=== PATIENT | female | born 1985 | race American Indian/Alaskan Native ===

== ENCOUNTER 2020-01-14 11:20 | Outpatient (CLI) | payer OTHER ==
[2020-01-14 12:03] VITALS: BP 103/66
--- NOTE | 2020-01-14 15:10 | Ultrasound Report ---
ULTRASOUND BIOPHYSICAL PROFILE INDICATION: Arrhythmia. COMPARISON: None available. FINDINGS: heart rate is 134 beats per minute. breathing movement = 2 Gross body movement = 2 tone = 2 Qualitative amniotic fluid volume = 2 IMPRESSION: biophysical profile = 02/12 Signer Name: Torrey Dunn Jr, MD Signed: 01/14/2020 3:06 PM Workstation Name: [id number]
== END 2020-01-14 14:00 | disposition home or self-care (01) ==
LOC: TRG 11:20 → APU 11:20 → TRG 14:00
PROVIDERS: ATTEND Obstetrics & Gynecology
DX: O13.3 Gestational [pregnancy-induced] hypertension without significant proteinuria, third trimester (principal); Z3A.38 38 weeks gestation of pregnancy
CPT/HCPCS: 76819

== ENCOUNTER 2020-02-02 16:28 | Emergency (ER) | payer OTHER ==
[2020-02-02] MEDS ORDERED: HYDROmorphone 1 MG/1 ML INJ IV ONE (20:39)
[2020-02-02] MEDS ORDERED: SODIUM CHLORIDE 0.9% 1000 ML 1,000 ML IV ONE (20:39)
[2020-02-02] MEDS ORDERED: KETOROLAC 30 MG/1 ML INJ IV ONE (20:39)
[2020-02-02] MEDS ORDERED: ONDANSETRON 4 MG/2 ML INJ IV ONE (20:39)
[2020-02-02 21:24] LABS: Basophils % (Auto) 0.8 % (0.0-1.8); Eosinophils # (Auto) 0.2 K/mm3 (0.0-0.4); Hematocrit 38.2 % (30.3-42.9); Hemoglobin 12.4 gm/dl (10.1-14.3); Lymphocytes # (Auto) 1.3 K/mm3 (1.2-5.4); Lymphocytes % (Auto) 32.6 % (13.4-35.0); Mean Corpuscular HGB Conc 33 % (30-34); Mean Corpuscular Volume 90 fl (79-97); Monocytes # (Auto) 0.4 K/mm3 (0.0-0.8); Monocytes % (Auto) 9.2 % (0.0-7.3); Platelet Count 322 K/mm3 (140-440); Red Blood Count 4.24 M/mm3 (3.65-5.03)
[2020-02-02 21:32] LABS: Blood Urea Nitrogen 7 mg/dL (7-17); Hemolysis Index 0
[2020-02-02 21:35] LABS: BUN/Creatinine Ratio 14
--- NOTE | 2020-02-02 21:55 | Progress Note ---
Subjective Date of service: 02/02/20 Principal diagnosis: PDPH Interval history: Patient presents with headache since post- day 1. States that was treated medically in the hospital with moderate success, has been taking acetaminophen at home with no relief. Describes pain as positional, neck stiffness, denies photophobia or fevers. Headache relieved with blood patch. Will monitor for 1 h our and d/c home. Instructed to increase fluids, caffeine, fiorcet. Objective - Constitutional Vitals: Vital Signs - 12hr 02/02/20 16:42 Temperature 97.6 F Pulse Rate 77 Respiratory 18 Rate Blood Pressure 126/78 O2 Sat by Pulse 100 Oximetry - Labs CBC & Chem 7: 02/02/20 20:47 02/02/20 20:47 Labs: Abnormal lab results 02/02/20 02/02/20 Range/Units 20:47 20:47 WBC 4.0 L (4.5-11.0) K/mm3 [place] % (Auto) 9.2 H (0.0-7.3) % Creatinine 0.5 L (0.7-1.2) mg/dL
--- NOTE | 2020-02-02 21:56 | Anesthesia Consultation ---
Anesthesia Consult and Med Hx Date of service: 02/02/20 - Airway Anesthetic Teeth Evaluation: Good ROM Head & Neck: Adequate Mental/Hyoid Distance: Adequate Mallampati Class: Class II Intubation Access Assessment: Probably Good - Pulmonary Exam CTA: Yes - Cardiac Exam Cardiac Exam: RRR - Pre-Operative Health Status ASA Pre-Surgery Classification: ASA2 Proposed Anesthetic Plan: Epidural - Pulmonary Hx Smoking: No Hx Asthma: No COPD: No Hx Pneumonia: No - Cardiovascular System Hx Hypertension: No - Central Nervous System Hx Seizures: No Hx Psychiatric Problems: No - Gastrointestinal Hx Gastroesophageal Reflux Disease: No - Endocrine Hx Renal Disease: No Hx End Stage Renal Disease: No Hx Hypothyroidism: No Hx Hyperthyroidism: No - Hematic Hx Anemia: No Hx Sickle Cell Disease: No - Other Systems Hx Alcohol Use: No
--- NOTE | 2020-02-02 21:59 | Emergency Department Report ---
ED Headache HPI - General Chief Complaint: Headache Stated Complaint: HEADACHE,NECK PAIN Time Seen by Provider: 02/02/20 20:36 - History of Present Illness Initial Comments: Patient is a 34-year-old F [place] female who is 3 days status post uneventful spontaneous vaginal delivery who is presenting with a headache. States patient states that the headache is worse with standing is a pounding 8 out of 10 in severity. She denies any neck stiffness but does have some mild neck discomfort and some discomfort in her lower back where she received her epidural. She denies any bowel or bladder dysfunction at this time. Patient states she has been afebrile. Allergies/Adverse Reactions: Allergies No Known Allergies Allergy (Unverified 11/05/19 15:20) Home Medications: Ambulatory Orders Butalb/Acetamin/Caff 50-325-40 [Fioricet 50-325-40] 1 tab PO Q8HR PRN #6 tablet 02/02/20 ED Review of Systems ROS: Stated complaint: HEADACHE,NECK PAIN Other details as noted in HPI Comment: All other systems reviewed and negative ED Past Medical Hx - Past Medical History Hx Hypertension: No Hx Congestive Heart Failure: No Hx Diabetes: No Hx Deep Vein Thrombosis: No Hx Renal Disease: No Hx Sickle Cell Disease: No Hx Seizures: No Hx Asthma: No Hx COPD: No Hx HIV: No - Surgical History Additional Surgical History: gastric sleeve - Social History Smoking Status: Never Smoker Substance Use Type: None - Medications Home Medications: Home Medications Medication Instructions Recorded Confirmed Last Taken Type Butalb/Acetamin/Caff 50-325-40 1 tab PO Q8HR PRN #6 tablet 02/02/20 Unknown Rx [Fioricet 50-325-40] ED Physical Exam - General Limitations: No Limitations General appearance: alert, in no apparent distress - Head Head exam: Present: atraumatic, normocephalic - Eye Eye exam: Present: normal appearance, PERRL, EOMI - ENT ENT exam: Present: mucous membranes moist - Neck Neck exam: Present: normal inspection, full ROM. Absent: tenderness, meningismus - Respiratory Respiratory exam: Present: normal lung sounds bilaterally. Absent: respiratory distress, wheezes, rales, rhonchi - Cardiovascular Cardiovascular Exam: Present: regular rate, normal rhythm. Absent: systolic murmur, diastolic murmur, rubs, gallop - GI/Abdominal GI/Abdominal exam: Present: soft, normal bowel sounds - Extremities Exam Extremities exam: Present: normal inspection - Back Exam Back exam: Present: normal inspection - Neurological Exam Neurological exam: Present: alert, oriented X3 - Psychiatric Psychiatric exam: Present: normal affect, normal mood - Skin Skin exam: Present: warm, dry, intact, normal color. Absent: rash ED Course Vital Signs 02/02/20 16:42 Temperature 97.6 F Pulse Rate 77 Respiratory 18 Rate Blood Pressure 126/78 O2 Sat by Pulse 100 Oximetry ED Medical Decision Making - Lab Data Result diagrams: 02/02/20 20:47 02/02/20 20:47 Lab Results 02/02/20 02/02/20 Range/Units 20:47 20:47 WBC 4.0 L (4.5-11.0) K/mm3 RBC 4.24 (3.65-5.03) M/mm3 Hgb 12.4 (10.1-14.3) gm/dl Hct 38.2 (30.3-42.9) % MCV 90 (79-97) fl MCH 29 (28-32) pg MCHC 33 (30-34) % RDW 15.0 (13.2-15.2) % Plt Count 322 (140-440) K/mm3 Lymph % (Auto) 32.6 (13.4-35.0) % [place] % (Auto) 9.2 H (0.0-7.3) % Eos % (Auto) 4.0 (0.0-4.3) % Baso % (Auto) 0.8 (0.0-1.8) % Lymph # 1.3 (1.2-5.4) K/mm3 [place] # 0.4 (0.0-0.8) K/mm3 Eos # 0.2 (0.0-0.4) K/mm3 Baso # 0.0 (0.0-0.1) K/mm3 Seg Neutrophils % 53.4 (40.0-70.0) % Seg Neutrophils # 2.1 (1.8-7.7) K/mm3 Sodium 138 (137-145) mmol/L Potassium 4.1 (3.6-5.0) mmol/L Chloride 101.9 (98-107) mmol/L Carbon Dioxide 25 (22-30) mmol/L Anion Gap 15 mmol/L BUN 7 (7-17) mg/dL Creatinine 0.5 L (0.7-1.2) mg/dL Estimated GFR > 60 ml/min BUN/Creatinine Ratio 14 % Glucose 78 (65-100) mg/dL Calcium 9.0 (8.4-10.2) mg/dL - Medical Decision Making Patient was hydrated and given medication for pain relief which did help with her headache. Anesthesia was present and gracious enough to come to perform blood patch for the patient. Patient was allowed to lie flat for approximately an hour after the blood patch and she will be discharged home. Critical care attestation.: If time is entered above; I have spent that time in minutes in the direct care of this critically ill patient, excluding procedure time. ED Disposition Clinical Impression: Spinal headache Disposition: TO HOME OR SELFCARE Is pt being admited?: No Does the pt Need Aspirin: No Condition: Stable Additional Instructions: Epidural blood patch Surgical Procedure An epidural blood patch is a surgical procedure that uses autologous blood in order to close one or many holes in the dura mater of the spinal cord, usually as a result of a previous lumbar puncture. The procedure can be used to relieve post dural puncture headaches caused by lumbar puncture. A small amount of the patient's blood is injected into the epidural space near the site of the original puncture; the resulting blood clot then "patches" the meningeal leak. The procedure carries the typical risks of any epidural puncture. However, even though it is often effective, further intervention is sometimes necessary Prescriptions: Butalb/Acetamin/Caff 50-325-40 [Fioricet 50-325-40] 1 tab PO Q8HR PRN #6 tablet PRN Reason: Headache Referrals: PRIMARY CARE, [Primary Care Provider] - 3-5 Days Time of Disposition: 22:02
--- NOTE | 2020-02-02 21:59 | Progress Note ---
Labor Epidural - Labor Epidural Start Time: 09:25 Stop Time: :35 Performed by:: JODY HYMAN Procedure: Patient is requesting epidural blood patch for pdph. H&P, and labs reviewed. Procedure explained, questions answered, consent obtained. Patient in sitting position with blood pressure cuff and pulse ox on and working. Timeout performed immediately before start of procedure. Sterile betadine prep/drape. 3 mL 1% lidocaine skin wheal at L2-L3. 18-gauge Touhy epidural needle advanced to [id number] with saline at [7] cm. 25 ml of autologous, sterilly drawn blood injected. tegaderm applied, Patient tolerated procedure well. Headache relieved, reports back pressure as expected
[2020-02-02 23:26] VITALS: BP 100/59
== END 2020-02-02 23:30 | disposition home or self-care (01) ==
LOC: ED 16:28
DX: T88.59XA Other complications of anesthesia, initial encounter (principal); R51 Headache; Y83.8 Other surgical procedures as the cause of abnormal reaction of the patient, or of later complication, without mention of misadventure at the time of the procedure; Y75.3 Surgical instruments, materials and neurological devices (including sutures) associated with adverse incidents; Y92.89 Other specified places as the place of occurrence of the external cause; Z98.890 Other specified postprocedural states; Z79.899 Other long term (current) drug therapy
CPT/HCPCS: 36415; 80048; 85025; 99283; J1170; J1885; J2405; J7030